=== PATIENT | male | born 1975 | race Caucasian/White ===

== ENCOUNTER 2016-10-08 17:46 | Emergency (ER) | payer OTHER ==
[~2016-10-08] VITALS: Ht 193 cm; Wt 64.5 kg
[~2016-10-08 17:46] MED LIST: ALBUTEROL SULF8.5 GM IH; ASPIR 8181 M1 PO; FLEXERIL10 MG PO; INDOCIN25 MG PO; KEFLEX500 MG PO; LO-DOSE ASPIRIN81 M1 PO; LORTAB 5-325 M1 EACH PO; Levaquin PO; MEDROL DOSEPAK4 MG PO; NAPROSYN500 MG PO; NAPROXEN500 MG PO; NOHOMEMEDS; NORCO 7.5/321 TABLET PO; PERCOCET 5/31 TABLET PO; Protonix PO; ULTRACET1 TABLET PO; VALIUM5 MG PO; ZITHROMAX500 MG PO
[2016-10-08 19:02] LABS: HEMATOCRIT 46.1 % (38.0-50.0); MCH 31.6 PG (29.0-34.0); MCHC 33.8 G/DL (30.0-36.0); MCV 93.3 FL (86-99); MEAN PLAT.VOLUME 8.8 uM^3 (9.0-12.4); PLATELET COUNT 248 K/uL (156-360); RBC DIS.WIDTH-SD 41.1 % (39-53); RED BLOOD COUNT 4.94 M/uL (4.00-5.50); WHITE BLOOD COUNT 16.4 K/uL (4.1-10.2)
[2016-10-08 19:11] LABS: CHLORIDE 105 mEq/L (99-109); POTASSIUM 4.6 mEq/L (3.7-5.4); SODIUM 141 mEq/L (136-147)
[2016-10-08 19:12] LABS: GLUCOSE 69 mg/dL (70-99)
[2016-10-08 19:14] LABS: ANION GAP 9 MEQ/L (2-14)
[2016-10-08 19:16] LABS: GFR ESTIMATE (CALCULATED) > 59 mL/min/
[2016-10-08 19:17] LABS: UREA NITROGEN (BUN) 6 mg/dL (9-23)
[2016-10-08 19:44] VITALS: BP 115/71
== END 2016-10-08 19:45 | disposition left against medical advice (07) ==
LOC: EME 17:46
DX: R31.9 Hematuria, unspecified (principal); Z53.21 Procedure and treatment not carried out due to patient leaving prior to being seen by health care provider
CPT/HCPCS: 80048; 81003; 85027; 99281; 99282

== ENCOUNTER 2016-12-02 07:29 | Inpatient (IN) | payer OTHER ==
[~2016-12-02] VITALS: Ht 193 cm; Wt 150.0 kg
[2016-12-02 08:41] LABS: BASOPHIL COUNT 0.1 K/uL (0-0.1); EOSINOPHIL (%) 1.4 % (0-5); EOSINOPHIL COUNT 0.1 K/uL (0-0.3); HEMATOCRIT 42.1 % (38.0-50.0); IMMATURE GRANULOCYTE (%) 0.5 % (0.0-0.7); IMMATURE GRANULOCYTE COUNT 0.1 K/uL; INSTRUMENT ABS NEUTROPHIL CT 7.2 K/uL; LYMPHOCYTE COUNT 1.5 K/uL (1.0-2.8); MCH 31.8 PG (29.0-34.0); MCHC 34.4 G/DL (30.0-36.0); MCV 92.3 FL (86-99); MONOCYTE (%) 6.6 % (3-12); MONOCYTE COUNT 0.6 K/uL (0-0.8); NEUTROPHIL (%) 75.3 % (45-76); NEUTROPHIL COUNT 7.2 K/uL (1.8-6.4); PLATELET COUNT 244 K/uL (156-360); RBC DIS.WIDTH-CV 11.9 % (11.8-14.6); RBC DIS.WIDTH-SD 40.2 % (39-53); RED BLOOD COUNT 4.56 M/uL (4.00-5.50); WHITE BLOOD COUNT 9.6 K/uL (4.1-10.2)
[2016-12-02 08:47] LABS: CHLORIDE 106 mEq/L (99-109); POTASSIUM 3.8 mEq/L (3.7-5.4); SODIUM 139 mEq/L (136-147)
[2016-12-02 08:49] LABS: GLUCOSE 100 mg/dL (70-99)
[2016-12-02 08:50] LABS: ANION GAP 9 MEQ/L (2-14)
[2016-12-02 08:53] LABS: GFR ESTIMATE (CALCULATED) > 59 mL/min/
[2016-12-02 08:54] LABS: UREA NITROGEN (BUN) 7 mg/dL (9-23)
[2016-12-02 09:01] LABS: TROP-I INTERPRETATION NEGATIVE; TROPONIN-I < 0.01 ng/mL (0.0-0.30)
[2016-12-02 15:47] VITALS: BP 116/78
[2016-12-02 16:36] VITALS: BP 133/85
[2016-12-02 17:59] LABS: TROP-I INTERPRETATION NEGATIVE; TROPONIN-I < 0.01 ng/mL (0.0-0.30)
[2016-12-02 20:08] VITALS: BP 144/69
[2016-12-02 22:52] LABS: TROP-I INTERPRETATION NEGATIVE
[2016-12-02 22:53] LABS: TROPONIN-I 0.02 ng/mL (0.0-0.30)
[2016-12-02 23:18] VITALS: BP 134/77
[2016-12-03 04:11] VITALS: BP 126/79
[2016-12-03 06:15] LABS: HEMATOCRIT 40.3 % (38.0-50.0); MCH 33.4 PG (29.0-34.0); MCHC 34.7 G/DL (30.0-36.0); MCV 96.2 FL (86-99); MEAN PLAT.VOLUME 9.3 uM^3 (9.0-12.4); PLATELET COUNT 212 K/uL (156-360); RBC DIS.WIDTH-CV 12.4 % (11.8-14.6); RBC DIS.WIDTH-SD 43.8 % (39-53); RED BLOOD COUNT 4.19 M/uL (4.00-5.50); WHITE BLOOD COUNT 9.2 K/uL (4.1-10.2)
[2016-12-03 06:44] LABS: ANION GAP 7 MEQ/L (2-14); CHLORIDE 104 MEQ/L (99-109); GFR ESTIMATE (CALCULATED) > 59 mL/min/; GLUCOSE 89 mg/dL (70-99); POTASSIUM 4.4 MEQ/L (3.7-5.4); SAMPLE HEMOLYSIS CHECK 0; SAMPLE ICTERIC CHECK 0; SAMPLE LIPEMIA CHECK 0; SODIUM 140 MEQ/L (136-147); UREA NITROGEN (BUN) 12 mg/dL (9-23)
[2016-12-03 08:24] VITALS: BP 134/64
[2016-12-03 11:35] VITALS: BP 115/65
[2016-12-03 16:11] VITALS: BP 119/72
[2016-12-03 19:49] VITALS: BP 117/65
[2016-12-03 23:53] VITALS: BP 131/77
[2016-12-04 04:32] VITALS: BP 118/78
[2016-12-04 08:10] VITALS: BP 137/72
[2016-12-04 16:38] VITALS: BP 113/66
[2016-12-04 19:38] VITALS: BP 127/78
[2016-12-04 23:39] VITALS: BP 124/70
[2016-12-05 03:09] VITALS: BP 114/65
[2016-12-05 06:47] LABS: HEMATOCRIT 39.6 % (38.0-50.0); MCH 31.3 PG (29.0-34.0); MCHC 33.1 G/DL (30.0-36.0); MCV 94.7 FL (86-99); MEAN PLAT.VOLUME 9.2 uM^3 (9.0-12.4); PLATELET COUNT 230 K/uL (156-360); RBC DIS.WIDTH-CV 12.2 % (11.8-14.6); RBC DIS.WIDTH-SD 42.5 % (39-53); RED BLOOD COUNT 4.18 M/uL (4.00-5.50); WHITE BLOOD COUNT 13.9 K/uL (4.1-10.2)
[2016-12-05 07:24] LABS: ANION GAP 7 MEQ/L (2-14); CHLORIDE 103 MEQ/L (99-109); GFR ESTIMATE (CALCULATED) > 59 mL/min/; GLUCOSE 93 mg/dL (70-99); POTASSIUM 4.2 MEQ/L (3.7-5.4); SAMPLE HEMOLYSIS CHECK 0; SAMPLE ICTERIC CHECK 0; SAMPLE LIPEMIA CHECK 0; SODIUM 141 MEQ/L (136-147); UREA NITROGEN (BUN) 11 mg/dL (9-23)
[2016-12-05 07:46] VITALS: BP 129/72
[2016-12-05 12:21] VITALS: BP 118/65
[2016-12-05 16:30] VITALS: BP 135/64
[2016-12-05 19:40] VITALS: BP 117/73
[2016-12-05 23:30] VITALS: BP 122/59
[2016-12-06 03:30] VITALS: BP 126/75
[2016-12-06 06:48] LABS: HEMATOCRIT 36.5 % (38.0-50.0); MCH 31.6 PG (29.0-34.0); MCHC 33.2 G/DL (30.0-36.0); MCV 95.3 FL (86-99); MEAN PLAT.VOLUME 9.5 uM^3 (9.0-12.4); PLATELET COUNT 215 K/uL (156-360); RBC DIS.WIDTH-CV 12.3 % (11.8-14.6); RBC DIS.WIDTH-SD 43.4 % (39-53); RED BLOOD COUNT 3.83 M/uL (4.00-5.50); WHITE BLOOD COUNT 8.5 K/uL (4.1-10.2)
[2016-12-06 07:47] VITALS: BP 130/63
[2016-12-06 11:39] VITALS: BP 129/71
[2016-12-06 16:30] VITALS: BP 117/69
[2016-12-06 19:18] VITALS: BP 114/77
[2016-12-06 23:12] VITALS: BP 120/74
[2016-12-07 03:00] VITALS: BP 150/80
[2016-12-07 06:45] LABS: HEMATOCRIT 36.9 % (38.0-50.0); MCH 31.1 PG (29.0-34.0); MCHC 32.8 G/DL (30.0-36.0); MCV 94.9 FL (86-99); MEAN PLAT.VOLUME 9.4 uM^3 (9.0-12.4); PLATELET COUNT 204 K/uL (156-360); RBC DIS.WIDTH-CV 12.3 % (11.8-14.6); RBC DIS.WIDTH-SD 42.9 % (39-53); RED BLOOD COUNT 3.89 M/uL (4.00-5.50); WHITE BLOOD COUNT 7.4 K/uL (4.1-10.2)
[2016-12-07 07:49] VITALS: BP 134/65
[2016-12-07 15:09] VITALS: BP 135/68
[2016-12-07 16:46] VITALS: BP 134/65
[2016-12-07] MEDS ORDERED: DOCUSATE SODIU100 MG PO (19:24)
[2016-12-07] MEDS ORDERED: HYDROCODON-ACE1 EAC7 PO (19:24)
== END 2016-12-07 21:56 | disposition left against medical advice (07) | DRG 165 ==
LOC: EME → EDBD 07:29 → EDOF 13:05 → 3EAST 13:05 → ENRESERV 13:14 → 3EAST 15:18
PROVIDERS: Emergency Medicine; Surgery; Thoracic Surgery (Cardiothoracic Vascular Surgery)
DX: J93.83 Other pneumothorax (principal); J43.9 Emphysema, unspecified; J93.82 Other air leak; D72.829 Elevated white blood cell count, unspecified; I10 Essential (primary) hypertension; F32.9 Major depressive disorder, single episode, unspecified; F41.9 Anxiety disorder, unspecified; F17.200 Nicotine dependence, unspecified, uncomplicated; Z82.49 Family history of ischemic heart disease and other diseases of the circulatory system
CPT/HCPCS: 36415; 71010; 71020; 80048; 80053; 80061; 83036; 84443; 84484; 85025; 85027; 85651; 86038; 88305; 93005; 94640; 94640 76; 94799; 99202; 99281; 99284; J0131; J0330; J0690; J1100; J1170; J1644; J1885; J2250; J2270; J2405; J2710; J3010; J7120